=== PATIENT | male | born 1960 | race Caucasian/White ===

== ENCOUNTER 2017-01-23 03:51 | Emergency (ER) | payer BC ==
--- NOTE | 2017-01-23 04:33 | ED ---
La Brown Edward, scribed for Ronen Russo MD on 01/23/17 at 0404 . Syncope/Near Syncope - HPI Summary HPI Summary: 56 y/o male presents to ED s/p syncopal episode after vomiting several times. . Pt c/o of pain at back of head from hitting it on the floor. Associated sx: N/V after dinner tonight, diaphoresis. PMHx of vagaling when vomiting. Pt believes that is what happened tonight. - History Of Current Complaint Chief Complaint: EDSyncope Hx Obtained From: Patient Onset/Duration: Sudden Onset - Allergies/Home Medications Allergies/Adverse Reactions: Allergies Allergy/AdvReac Type Severity Reaction Status Date / Time No Known Allergies Allergy Verified 01/23/17 04:02 Home Medications: Home Medications Amlodipine Besylate [Norvasc 5 mg tab] 5 mg PO DAILY 01/23/17 [History Confirmed 01/23/17] Hydrochlorothiazide TAB* [Hydrodiuril TAB*] 25 mg PO DAILY 01/23/17 [History Confirmed 01/23/17] PMH/Surg Hx/FS Hx/Imm Hx Previously Healthy: No Endocrine/Hematology History: Denies: Hx Diabetes Cardiovascular History: Denies: Hx Myocardial Infarction Respiratory History: Denies: Hx Chronic Obstructive Pulmonary Disease (COPD) Neurological History: Reports: Other Neuro Impairments/Disorders - Vagaling when vomiting - Surgical History Surgery Procedure, Year, and Place: [id number] Infectious Disease History: No Infectious Disease History: Denies: Traveled Outside the [place] in Last 30 Days - Family History Known Family History: Negative: Cardiac Disease, Diabetes - Social History Occupation: Employed Full-time Lives: With Family Alcohol Use: Occasionally Hx Substance Use: No Substance Use Type: Reports: None Hx Tobacco Use: No Smoking Status (MU): Never Smoked Tobacco Do You Chew or Dip Tobacco: No Have You Chewed or Dipped Tobacco in the LAST YEAR: No Review of Systems Positive: Skin Diaphoresis Eyes: Negative ENT: Negative Cardiovascular: Negative Respiratory: Negative Positive: Vomiting, Nausea Genitourinary: Negative Musculoskeletal: Negative Skin: Negative Positive: Headache - Pain at back of the head due to fall, Syncope Psychological: Normal All Other Systems Reviewed And Are Negative: Yes Physical Exam Triage Information Reviewed: Yes Vital Signs On Initial Exam: Initial Vitals Temp Pulse Resp BP Pulse Ox 98.1 F 53 14 128/83 100 01/23/17 04:01 01/23/17 04:01 01/23/17 04:01 01/23/17 04:01 01/23/17 04:01 Vital Signs Reviewed: Yes Appearance: Positive: Well-Appearing, No Pain Distress Skin: Positive: Warm Head/Face: Positive: Normal Head/Face Inspection Eyes: Positive: ED ENT: Positive: Hearing grossly normal Neck: Positive: Supple Respiratory/Lung Sounds: Positive: Clear to Auscultation, Breath Sounds Present Cardiovascular: Positive: RRR Abdomen Description: Positive: Nontender, Soft Bowel Sounds: Positive: Present Musculoskeletal: Positive: Strength/ROM Intact Neurological: Positive: Alert, Oriented to Person Place, Time Psychiatric: Positive: Affect/Mood Appropriate Diagnostics - Vital Signs Vital Signs Temp Pulse Resp BP Pulse Ox 01/23/17 04:01 98.1 F 53 14 128/83 100 - Laboratory Result Diagrams: 01/23/17 04:10 01/23/17 04:10 Lab Statement: Any lab studies that have been ordered have been reviewed, and results considered in the medical decision making process. - CT BRAIN CT CT Interpretation: No Acute Changes - No acute intracranial abnormality. Normal brain. No hemorrhage. Osseous structures are intact. Advanced mucosal thickening and possbily fluid in the ethmoid and sphenoid sinuses. CT Interpretation Completed By: Radiologist - EKG 1 EKG Interpretation: 04:01 - Sinus bradycardia @ 53 bpm. Incomplete RBBB Re-Evaluation - Re-Evaluation First Eval Change: Improved Comment: results d/w pt Course/Dx Assessment/Plan: 56 y/o male presents to ED s/p multiple syncopal episodes. The first episode was unwitnessed. The patient's then came to the patient's aid and stated he "kept passing out on her". Pt c/o of pain at back of head from hitting it on the floor. Associated sx: N/V after dinner tonight, diaphoresis. PMHx of vagaling when vomiting. Pt believes that is what happened tonight. EKG - 04:01 - Sinus bradycardia @ 53 bpm. In[address]B. BRAIN CT shows no acute intracranial abnormality. Pt will be d/c home. - Diagnoses Provider Diagnoses: Syncope Discharge - Discharge Plan Condition: Improved Disposition: HOME Patient Education Materials: Syncope (ED) Referrals: [facility] [Outside] The documentation as recorded by the La valladares Edward accurately reflects the service I personally performed and the decisions made by me, Ronen Russo MD.
[2017-01-23 04:49] LABS: Hematocrit 40 % (42-52); Hemoglobin 13.3 g/dl (14.0-18.0); Mean Corpuscular HGB Conc 34 g/dl (31-36); Mean Corpuscular Hemoglobin 29 pg (27-31); Mean Corpuscular Volume 88 fL (80-94); Mean Platelet Volume 8 um3 (7.4-10.4); Red Blood Count 4.55 10^6/ul (4.0-5.4); Red Cell Distribution Width 14 % (10.5-15); White Blood Count 6.7 10^3/ul (3.5-10.8)
[2017-01-23 05:02] LABS: Albumin 3.9 g/dL (3.2-5.2); Calcium 8.6 mg/dL (8.6-10.3); EGFR African American 110.3 (>60); EGFR Non-African American 85.7 (>60); Globulin 2.9 g/dL (2-4); Total Bilirubin 0.5 mg/dL (0.2-1.0); Total Protein 6.8 g/dL (6.4-8.9)
[2017-01-23 05:31] LABS: Potassium 3.4 mmol/L (3.5-5.0)
[2017-01-23 05:32] LABS: Magnesium 2.1 mg/dL (1.9-2.7)
[2017-01-23 06:32] VITALS: BP 125/70
--- NOTE | 2017-01-23 08:05 | RAD ---
INDICATION: Syncopal episode followed by trauma to the occiput COMPARISON: None. TECHNIQUE: Contiguous axial sections of the brain were obtained from the skull base to the vertex without contrast. FINDINGS: The ventricles, cisterns and sulci are within normal limits. The villagran-white matter differentiation is adequately maintained and there is no sulcal effacement. No significant focal abnormality or mass effect is present. There is no evidence for intracranial hemorrhage. No significant focal osseous abnormality is present. The mastoid air cells appear clear. There is near complete opacification of the bilateral anterior and posterior ethmoid air cells. There is complete opacification of the right sphenoid sinus and near complete opacification of the left sphenoid sinus. Mild mucosal thickening is seen at the visualized portions of the bilateral maxillary sinuses. IMPRESSION: 1. No CT evidence of acute intracranial trauma including hemorrhage or calvarial fracture. 2. Advanced paranasal sinus mucosal disease.
== END 2017-01-23 06:36 | disposition home or self-care (01) ==
LOC: ED 03:51
DX: R55 Syncope and collapse (principal)
CPT/HCPCS: 36415; 70450; 80053; 83605; 83735; 84484; 85025; 93005; 99283